=== PATIENT | male | born 2000 | race Caucasian/White ===

== ENCOUNTER 2023-04-05 09:09 | Emergency (ER) | payer MEDICAID ==
[~2023-04-05] VITALS: Ht 177.8 cm; Wt 73.0 kg
[2023-04-05 10:41] VITALS: BP 132/83
[2023-04-05] MEDS ORDERED: BACITRACIN ZINC OINT UDPKT TOP ONE (10:45)
[2023-04-05] MEDS ORDERED: IBUPROFEN 600MG TABLET PO ONE (10:45)
[2023-04-05] MEDS ORDERED: BACI28.432 TP (11:32)
[2023-04-05] MEDS ORDERED: IBUP-2029 MT (11:33)
[2023-04-05] MEDS ORDERED: TETANUS, DIPHTHERIA, PERTUSSIS VAC/PF 0.5ML (>10YR OLD) IM ONE (11:45)
[2023-04-05] MEDS ORDERED: LIDOCAINE HCL 1% 20ML VIAL (Pyxis) INJ INFIL ONE (11:45)
== END 2023-04-05 13:23 | disposition home or self-care (01) ==
LOC: ER 09:09
DX: S61.213A Laceration without foreign body of left middle finger without damage to nail, initial encounter (principal); W45.8XXA Other foreign body or object entering through skin, initial encounter; Y93.89 Activity, other specified; Y92.89 Other specified places as the place of occurrence of the external cause; Y99.8 Other external cause status
CPT/HCPCS: 12001; 73140; 90471; 90715; 99283; Z7610

== ENCOUNTER 2023-04-08 19:26 | Emergency (ER) | payer MEDICAID ==
[~2023-04-08] VITALS: Ht 180.3 cm; Wt 65.0 kg
[~2023-04-08 19:26] MED LIST: BACI28.432 TP; IBUP-2029 MT
[2023-04-08 19:28] VITALS: BP 132/87
== END 2023-04-08 22:11 | disposition home or self-care (01) ==
LOC: ER 19:26
DX: Z48.02 Encounter for removal of sutures (principal)
CPT/HCPCS: 99281

== ENCOUNTER 2023-04-17 14:29 | Emergency (ER) | payer MEDICAID ==
[~2023-04-17] VITALS: Ht 180.3 cm; Wt 64.0 kg
[2023-04-17 14:41] VITALS: BP 125/86
== END 2023-04-17 16:44 | disposition home or self-care (01) ==
LOC: ER 14:29
DX: S61.213D Laceration without foreign body of left middle finger without damage to nail, subsequent encounter (principal); X58.XXXD Exposure to other specified factors, subsequent encounter
CPT/HCPCS: 99281; Z7610